=== PATIENT | female | born 1995 | race Caucasian/White ===

== ENCOUNTER 2016-10-10 00:04 | Outpatient (CLI) | payer OTHER | END 2016-10-10 03:20 | disposition home or self-care (01) | LOC: GENOP 00:04 | DX: O36.8130 Decreased fetal movements, third trimester, not applicable or unspecified (principal); O47.1 False labor at or after 37 completed weeks of gestation; Z3A.39 39 weeks gestation of pregnancy | CPT/HCPCS: 81001; 83518; G0463 ==

== ENCOUNTER 2016-10-14 23:36 | Inpatient (IN) | payer SELFPAY, OTHER ==
[~2016-10-14] VITALS: Ht 157.5 cm; Wt 61.2 kg
[2016-10-15 04:46] LABS: HEMOGLOBIN 12.3 gm/dl (12.3-15.3); RED BLOOD COUNT 3.86 M/UL (4.00-5.10)
[2016-10-16 03:52] LABS: HEMOGLOBIN 11.4 gm/dl (12.3-15.3)
== END 2016-10-16 17:17 | disposition home or self-care (01) | DRG 775 ==
LOC: GENOP 23:36 → OB 23:36 → GENOP 10-15 10:43 → OB 10-15 10:48
PROVIDERS: Obstetrics & Gynecology; ADMIT Obstetrics & Gynecology
PROC: 10E0XZZ Delivery of Products of Conception, External Approach (ICD-10-PCS; principal; 2016-10-15)
PROC: 10907ZC Drainage of Amniotic Fluid, Therapeutic from Products of Conception, Via Natural or Artificial Opening (ICD-10-PCS; 2016-10-15)
PROC: 3E0234Z Introduction of Serum, Toxoid and Vaccine into Muscle, Percutaneous Approach (ICD-10-PCS; 2016-10-15)
DX: O34.03 Maternal care for unspecified congenital malformation of uterus, third trimester (principal); O99.324 Drug use complicating childbirth; Q51.3 Bicornate uterus; Q64.4 Malformation of urachus; O99.344 Other mental disorders complicating childbirth; F32.9 Major depressive disorder, single episode, unspecified; F12.90 Cannabis use, unspecified, uncomplicated; O99.820 Streptococcus B carrier state complicating pregnancy; Z3A.40 40 weeks gestation of pregnancy; Z37.0 Single live birth; Z87.11 Personal history of peptic ulcer disease; Z23 Encounter for immunization
CPT/HCPCS: 36415; 51702; 80307; 81001; 82800; 82962; 85014; 85018; 85025; 90715; J2300; J2590; J2795; J3010; J7030; Q2039